=== PATIENT | female | born 1995 | race Caucasian/White ===

== ENCOUNTER 2021-03-27 19:09 | Observation (INO) | payer BC ==
[2021-03-27] MEDS ORDERED: Morphine 4 MG/ML VIAL ONE (20:37)
[2021-03-27] MEDS ORDERED: Ondansetron PF 4 MG/2 ML Vial ONE (20:37)
[2021-03-27 20:48] LABS: #Monocytes 1.4 10x3/uL (0.0-1.1); #Neutrophils 11.7 10x3/uL (1.5-8.4); %Basophils 0.3 % (0.0-2.0); %Eosinophils 0.1 % (0.0-6.0); %Lymphocytes 10.6 % (18.0-47.0); %Monocytes 9.3 % (0.0-10.0); %Neutrophils 79.3 % (40.0-75.0); Hemoglobin 13.7 g/dL (12.0-15.5); Mean Corpuscular HGB CONC 32.7 g/dL (32.0-36.0); Mean Corpuscular Hemoglobin 30.1 pg (27.0-33.0); Mean Corpuscular Volume 92.1 fl (81.6-98.3); Mean Platelet Volume 9.6 fl (7.4-10.4); Platelet Count 246 10x3/uL (150-450); RBC Distribution Width 14.1 % (11.5-14.5); Red Blood Cell (RBC) Count 4.55 10x6/uL (3.90-5.03); White Blood Cell (WBC) Count 14.7 10x3/uL (3.5-10.5)
[2021-03-27 20:52] LABS: BHCG - Serum Negative (NEGATIVE); Pregs Control Background? CLEAR/WHITE (CLR/WHITE); Pregs Control Bar Appear? YES (CONTROL BAR)
[2021-03-27 20:57] LABS: ALT (SGPT) 35 U/L (8-55); AST (SGOT) 34 U/L (5-34); Alkaline Phosphatase 70 U/L (40-110); Anion Gap 17 mmol/L (10-20); BUN (Urea Nitrogen) 8 mg/dL (7.0-18.7); Bilirubin, Total 0.4 mg/dL (0.2-1.2); Calc. Creatinine Clearance 0 mL/min (70-130); Calcium 9.6 mg/dL (7.8-10.44); Carbon Dioxide 20 mmol/L (22-29); Chloride 102 mmol/L (98-107); Glucose 80 mg/dL (70-105); Lipase 14 U/L (8-78); Potassium 3.5 mmol/L (3.5-5.1); Sodium 135 mmol/L (136-145)
[2021-03-27] MEDS ORDERED: Ketorolac Tromethamine 15 MG/ML VIAL ONE (21:41)
[2021-03-27 21:48] LABS: Bilirubin Neg (Negative); Blood, Urine 250 (Negative); Clarity Cloudy (Clear); Glucose, Urine (Dipstick) Normal (Negative); Ketone, Urine 15 mg/dL (Negative); Leukocyte 500 (Negative); Nitrite Negative (Negative); Protein, Urine (Dipstick) 500 mg/dl (Neg-Trace); Urobilinogen Normal mg/dL (Less than 2)
[2021-03-27 21:57] LABS: RBC/HPF 21-50 HPF (0-3)
[2021-03-27 21:58] LABS: Bacteria/HPF 2+ HPF (None Seen); Mucous/LPF 2+ LPF (<2+); Squamous Epithelial 0-3 HPF (0-3); WBC/HPF 21-50 HPF (0-3)
[2021-03-27] MEDS ORDERED: cefTRIAXone\\ROCEPHIN 2 GM VIAL ONE (22:29)
[2021-03-27] MEDS ORDERED: Morphine 4 MG/ML VIAL SLOW IVP PRN (23:11)
[2021-03-27] MEDS ORDERED: Ondansetron PF 4 MG/2 ML Vial IVP PRN (23:11)
[2021-03-27] MEDS ORDERED: Sodium Chloride 0.9% 1,000 ML IV SCH (23:15)
[2021-03-28] MEDS ORDERED: Potassium Chloride 20 MEQ TAB PO SCH (00:45)
[2021-03-28 01:17] VITALS: BMI 47.7
[2021-03-28] MEDS ORDERED: Tamsulosin HCl 0.4 MG CAP PO SCH (01:30)
[2021-03-28] MEDS: Lactated Ringer's 1,000 ML IV SCH ×3 (01:34→18:18)
[2021-03-28] MEDS: Acetaminophen 325 MG TAB PO PRN ×2 (01:35→07:53)
[2021-03-28 05:47] LABS: #Monocytes 1.3 10x3/uL (0.0-1.1); #Neutrophils 6.3 10x3/uL (1.5-8.4); %Basophils 0.3 % (0.0-2.0); %Eosinophils 0.4 % (0.0-6.0); %Lymphocytes 19.8 % (18.0-47.0); %Monocytes 13.3 % (0.0-10.0); %Neutrophils 65.6 % (40.0-75.0); Hemoglobin 11.5 g/dL (12.0-15.5); Mean Corpuscular HGB CONC 32.2 g/dL (32.0-36.0); Mean Corpuscular Volume 93.2 fl (81.6-98.3); Mean Platelet Volume 9.8 fl (7.4-10.4); Platelet Count 213 10x3/uL (150-450); RBC Distribution Width 14.5 % (11.5-14.5); Red Blood Cell (RBC) Count 3.83 10x6/uL (3.90-5.03); White Blood Cell (WBC) Count 9.6 10x3/uL (3.5-10.5)
[2021-03-28 05:56] LABS: Anion Gap 12 mmol/L (10-20); BUN (Urea Nitrogen) 6 mg/dL (7.0-18.7); Calc. Creatinine Clearance 281 mL/min (70-130); Calcium 8.3 mg/dL (7.8-10.44); Carbon Dioxide 22 mmol/L (22-29); Chloride 110 mmol/L (98-107); Glucose 101 mg/dL (70-105); Potassium 3.8 mmol/L (3.5-5.1); Sodium 140 mmol/L (136-145)
[2021-03-28] MEDS ORDERED: NORGEST PO SCH (09:00)
[2021-03-28] MEDS ORDERED: BIOTIN 1 MG PO SCH (09:00)
[2021-03-28] MEDS ORDERED: E ESTRADIOL E ESTRAD PO SCH (09:00)
[2021-03-28] MEDS: Enoxaparin Sodium 40 MG/0.4 ML SYRINGE SC SCH (10:29)
[2021-03-28] MEDS: Bupropion 150 MG XL TAB PO SCH (10:29)
[2021-03-28] MEDS: Ferrous Sulfate 325 MG TAB PO SCH (10:30)
[2021-03-28] MEDS: Loratadine 10 MG TAB PO SCH (10:30)
[2021-03-28] MEDS: HYDROcodone/Acetaminophen 5/325 mg Tablet PO PRN ×2 (11:46→15:47)
[2021-03-28 15:52] LABS: SARS-CoV-2 PCR by NAA Not Detected (NotDetected)
[2021-03-28] MEDS: Ondansetron ODT 4 MG TAB PO PRN (18:48)
[2021-03-28] MEDS ORDERED: Iopamidol 15 ML ONE (19:03)
[2021-03-28] MEDS ORDERED: Fentanyl 100 MCG/2 ML VIAL ONE (20:10)
[2021-03-28] MEDS ORDERED: PROPOFOL 20 ML ONE ×2 (20:10→20:16)
[2021-03-28] MEDS ORDERED: Lidocaine 1% PF 5 ML VIAL ONE (20:13)
[2021-03-28] MEDS ORDERED: Dexamethasone 4 mg/ml Vial ONE (20:20)
[2021-03-28] MEDS ORDERED: Ondansetron PF 4 MG/2 ML Vial ONE (20:20)
[2021-03-28] MEDS ORDERED: B & O ONE (20:37)
[2021-03-28] MEDS ORDERED: Sodium Chloride 0.9% 100 ML ONE ×2 (22:03→23:02)
[2021-03-28] MEDS: Tamsulosin HCl 0.4 MG CAP PO SCH (22:21)
[2021-03-28] MEDS: cefTRIAXone\\ROCEPHIN 2 GM in Sodium Chloride 0.9% 100 ML IVPB SCH (23:10)
[2021-03-29] MEDS: HYDROcodone/Acetaminophen 5/325 mg Tablet PO PRN ×3 (00:28→22:20)
[2021-03-29] MEDS: Lactated Ringer's 1,000 ML IV SCH ×3 (00:30→16:39)
[2021-03-29] MEDS: Morphine 4 MG/ML VIAL SLOW IVP PRN ×3 (01:24→13:35)
[2021-03-29] MEDS: Enoxaparin Sodium 40 MG/0.4 ML SYRINGE SC SCH (08:55)
[2021-03-29] MEDS: Trospium 20 MG TAB PO SCH ×2 (08:55→20:15)
[2021-03-29] MEDS: Bupropion 150 MG XL TAB PO SCH (08:55)
[2021-03-29] MEDS: Loratadine 10 MG TAB PO SCH (08:55)
[2021-03-29] MEDS: Ferrous Sulfate 325 MG TAB PO SCH (08:55)
[2021-03-29] MEDS: Phenazopyridine HCl 97.5 MG TABLET PO SCH ×3 (09:05→20:13)
[2021-03-29] MEDS: CEFPROZIL 250 MG/5 ML PO SCH ×2 (09:05→20:12)
[2021-03-29] MEDS: CeleCOXIB 100 MG CAP PO SCH (20:12)
[2021-03-29] MEDS: Tamsulosin HCl 0.4 MG CAP PO SCH (20:14)
[2021-03-29] MEDS: cefTRIAXone\\ROCEPHIN 2 GM in Sodium Chloride 0.9% 100 ML IVPB SCH (23:23)
[2021-03-29] MEDS: Ondansetron ODT 4 MG TAB PO PRN (23:34)
[2021-03-30] MEDS ORDERED: diphenhydrAMINE 25 MG CAP PO PRN (01:24)
[2021-03-30] MEDS: HYDROcodone/Acetaminophen 5/325 mg Tablet PO PRN (02:21)
[2021-03-30] MEDS: Morphine 4 MG/ML VIAL SLOW IVP PRN (03:17)
[2021-03-30] MEDS: Lactated Ringer's 1,000 ML IV SCH ×3 (05:37→14:00)
[2021-03-30] MEDS: CeleCOXIB 100 MG CAP PO SCH (09:48)
[2021-03-30] MEDS: Trospium 20 MG TAB PO SCH (09:48)
[2021-03-30] MEDS: Ferrous Sulfate 325 MG TAB PO SCH (09:49)
[2021-03-30] MEDS: Phenazopyridine HCl 97.5 MG TABLET PO SCH ×2 (09:50→15:37)
[2021-03-30] MEDS: Enoxaparin Sodium 40 MG/0.4 ML SYRINGE SC SCH (09:50)
[2021-03-30] MEDS: Bupropion 150 MG XL TAB PO SCH (09:52)
[2021-03-30] MEDS: CEFPROZIL 250 MG/5 ML PO SCH (11:18)
[2021-03-30] MEDS: Loratadine 10 MG TAB PO SCH (11:18)
[2021-03-30] MEDS ORDERED: HYDROcodone/Acetaminophen 10/325 mg Tablet PO PRN (12:42)
[2021-03-30 17:01] VITALS: BP 110/58; TEMP 97.6
== END 2021-03-30 18:00 | disposition home or self-care (01) ==
LOC: CSHERS 19:09 → CSHPP 23:11 → UNDOADMOB 03-28 00:41 → CSHPP 03-28 00:41
PROVIDERS: ADMIT Family Medicine; ATTEND Internal Medicine
PROC: 0T768DZ Dilation of Right Ureter with Intraluminal Device, Via Natural or Artificial Opening Endoscopic (ICD-10-PCS; principal; 2021-03-28)
DX: A41.9 Sepsis, unspecified organism (principal); N13.6 Pyonephrosis; B96.4 Proteus (mirabilis) (morganii) as the cause of diseases classified elsewhere; M54.2 Cervicalgia; E66.01 Morbid (severe) obesity due to excess calories; Z68.42 Body mass index [BMI] 45.0-49.9, adult; Z79.899 Other long term (current) drug therapy; Z20.822 Contact with and (suspected) exposure to COVID-19
CPT/HCPCS: 36415; 51600; 74176; 74430; 80048; 80053; 81003; 81015; 83605; 83690; 83735; 84703; 85025; 87040; 87077; 87086; 87186; 87635; 96365; 96366; 96372; 96375; 96376; C2625; G0378; J0696; J1100; J1650; J1885; J2270; J2405; J2704; J3010; J3370; J3490; J7030; J7120; Q0162; Q0163; Q9967; U0003; U0005